=== PATIENT | male | born 1990 | race African-American/Black ===

== ENCOUNTER 2019-12-17 15:39 | Emergency (ER) | payer OTHER ==
[~2019-12-17] VITALS: Ht 180.3 cm; Wt 80.7 kg
[~2019-12-17 15:39] MED LIST: AMOXICILLIN 50500 M1 PO; APAP/CODEINE ELI5 M1 OR; NOHOMEMEDICATIONS
[2019-12-17 15:45] VITALS: BP 134/84
[2019-12-17] MEDS ORDERED: IBUPROFEN 800800 M1 PO (16:22)
== END 2019-12-17 16:33 | disposition home or self-care (01) ==
LOC: ER 15:39
DX: S93.402A Sprain of unspecified ligament of left ankle, initial encounter (principal); M79.672 Pain in left foot; F17.210 Nicotine dependence, cigarettes, uncomplicated; X50.1XXA Overexertion from prolonged static or awkward postures, initial encounter; Y93.89 Activity, other specified; Y92.89 Other specified places as the place of occurrence of the external cause; Y99.8 Other external cause status